=== PATIENT | female | born 1970 | race Caucasian/White ===

== ENCOUNTER → 2020-02-22 14:04 | Outpatient (CLI) | payer OTHER, SELFPAY ==
--- NOTE | 2020-02-22 14:08 | CT_ITS ---
STUDY: CT CHEST WITH CONTRAST REASON FOR EXAM: Female, 49 years old. LT SIDE CHEST/UPPER ARM PAIN, AXILLARY FULLNESS X 2 WEEKS. ATTN: LT AXILLARY LYMPHADENOPATHY. RADIATION DOSAGE (If Supplied By Facility): CTDIvol = ( 7.76 ) mGy, DLP = ( 210.35 ) mGycm TECHNIQUE: Transaxial imaging was performed following intravenous administration of IV 100mL Isovue-300. Multiplanar coronal and sagittal images were reformatted. Individualized dose optimization techniques were used for this CT. COMPARISON: None. FINDINGS: Small benign appearing bilateral axillary lymph nodes. The lungs are normal. There is no demonstrated pleural abnormality. Normal heart and pericardium. Normal mediastinum. Normal hilar regions. Normal enhanced pulmonary arteries. Normal aorta arch and descending thoracic aorta. Normal osseous structures. Large amount of residual food particles are seen within the stomach. CT/Chest WITH Contrast IMPRESSION: No acute abnormality is seen. Electronically Signed: Jim Meeks, at 15:37 EST , Service support ,
== END ==
PROVIDERS: PCP Internal Medicine; Referring Provider Internal Medicine; Visit Provider Internal Medicine
DX: R22.2 Localized swelling, mass and lump, trunk (principal)
CPT/HCPCS: 71260; Q9967

== ENCOUNTER → 2020-03-07 13:55 | Outpatient (CLI) | payer OTHER, SELFPAY ==
[2016-06-21 12:35] VITALS: BMI 21.0
--- NOTE | 2020-03-07 13:53 | BI_ITS ---
MAMMOGRAPHY - BILATERAL SCREENING REASON FOR EXAM: Female, 49 years old. Routine annual screening examination. PERTINENT HISTORY: Non-contributory. TECHNIQUE: Digital bilateral breast silvestre (3D mammographic acquisition) in the CC and MLO projections. 2-D mediolateral oblique (MLO) and craniocaudad (CC) views of both breasts were obtained. CAD: Full Field Digital Mammography with Computer Added Detection was performed. COMPARISON: None. Baseline examination. FINDINGS: Breast Composition: The breasts are heterogeneously dense, which may obscure small masses. There are no dominant masses or suspicious calcifications. No other significant abnormalities are identified. BI/SCREEN MAMM (CAD) W/SILVESTRE BILAT IMPRESSION: Negative screening mammogram. Yearly followup mammogram recommended. (A) ASSESSMENT CATEGORY: BIRADS Category 1: Negative. A letter regarding these results will be sent to the patient by the facility within 30 days. Approximately 10% of breast cancers are not detected by mammography. A normal mammogram should not delay biopsy of a clinically suspicious abnormality. [id number] Electronically Signed: Jim Meeks, at 15:02 EST , Service support ,
== END ==
PROVIDERS: PCP Internal Medicine; Referring Provider Internal Medicine; Visit Provider Internal Medicine
DX: Z12.31 Encounter for screening mammogram for malignant neoplasm of breast (principal)
CPT/HCPCS: 77063; 77067

== ENCOUNTER → 2020-07-15 16:03 | Outpatient (CLI) | payer OTHER, SELFPAY | PROVIDERS: PCP Internal Medicine; Referring Provider Otolaryngology; Visit Provider Otolaryngology | DX: Z11.59 Encounter for screening for other viral diseases (principal) | CPT/HCPCS: 87635; C9803; U0002 ==

== ENCOUNTER → 2021-08-24 | Outpatient (CLI) | payer OTHER, SELFPAY ==
--- NOTE | 2021-08-24 08:43 | MRI_ITS ---
STUDY: MRI BRAIN WITHOUT CONTRAST REASON FOR EXAM: Female, 51 years old. HEADACHE, MIGRAINE, VISION CHANGES TECHNIQUE: Standardized multiplanar fat and water weighted pulse sequences were obtained. COMPARISON: MRI of the brain dated November 22, 2016. Head CT dated June 21, 2016 FINDINGS: Normal size of the ventricles and extra-axial spaces for the patient''s age. Single tiny focus of chronic microvascular ischemic signal in the superior aspect of the left parietal lobe. Normal remaining white matter tracts of the supratentorial brain. There is no evidence for recent intracranial ischemia or other cause of cytotoxic edema on diffusion weighted imaging (DWI). Normal T2* images of the brain without demonstrated susceptibility artifact. There is no demonstrated hemosiderin stain. There are no additional white matter hyperintensities. Specifically, there are no focal areas of white matter gliosis which are occasionally associated with vasospastic migraine headaches. Normal bilateral basal ganglia. Normal thalami. There is no extra-axial fluid accumulation. Normal flow voids within the major intracranial circulation suggesting patency by spin echo criteria. Normal sella turcica, pituitary gland, infundibular stalk, optic chiasm and hypothalamus. Normal tectal plate and pineal gland. Normal midbrain, shasta and medulla. Normal cerebellum. Normal basal cisterns. Normal bilateral temporal bones. Normal bilateral internal auditory canals. No demonstrated orbital abnormality, within the constraints of a routine brain study. Normal visualized paranasal sinuses. Normal calvarium and skull base. Normal visualized soft tissue structures. Normal visualized upper cervical spine. MRI/Brain without Contrast IMPRESSION: 1. Unremarkable unenhanced MRI of the brain. Electronically Signed: Rodolfo Brunner MD at 13:01 EDT ,
== END | disposition home or self-care (01) ==
PROVIDERS: PCP Internal Medicine; Referring Provider Internal Medicine; Visit Provider Internal Medicine
DX: H53.9 Unspecified visual disturbance (principal); R51.9 Headache, unspecified
CPT/HCPCS: 70551

== ENCOUNTER 2023-12-09 10:00 | Outpatient (RCR) | payer OTHER, SELFPAY | END 2023-12-09 19:00 | disposition home or self-care (01) | LOC: PT 10:00 | PROVIDERS: PCP Internal Medicine; Referring Provider Anesthesiology; Visit Provider Anesthesiology | DX: M47.892 Other spondylosis, cervical region (principal) | CPT/HCPCS: 97035; 97162; 97530 ==

== ENCOUNTER 2025-02-22 09:30 | Outpatient (RCR) | payer OTHER, SELFPAY ==
--- NOTE | 2025-01-11 12:54 | HP.PTEVAL ---
Patient's Visit Information Visit Information Visit Information: MARGARITA RICO is a 54 year old F referred to Physical Therapy by Dr. Norberto Redmond MD with a diagnosis of clicky hip. Date of Evaluation: 01/11/25 Physical Therapist: Sea Freire, DPT, OCS, CSCS Visit Plan Frequency: 2x /Week Duration: 4-6 Weeks Plan: 2x/week for 3-6 weeks for IE HEP SLR abd and ext 3x10 R daily and frog leg R press up 10x 6x/day. treat... 1. glut med R DTR and stretch 2. R hip strength to HEP 3. Monitor adn progress PPU with R close down and monitor progress with hip pain, and weakness R hip and use ext mobs to lumbar and progressive extension if impropving. Start core streength immdiately adn work to HEP. Subjective Subjective: Sees [facility] for 2 yrs for back injections. They hep most of time. This is a different pain R SI joint and back of hip and mid leg laterally. Present long time. Insidious onset but did get kicked by cow a couple years ago, slowly worse since then. 0-9/10 worse with sitting too much. Worse on feet alot. Worse driving. Lying at night it hurts. Can keep her awake. 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 Activities at home are avoiding lifting and bending can be bothersome. Hip has always clicked even before pain. Basic ADLs: all done. Tries to ex, hard for TM walking. No other exercises. Dr. Campoverde sent to [facility] for pain mgmt until she needs fused. Pain r hip: Pain Intensity (Out of 10): 1 Pain Intensity Range: 9 Comment: worse sitting too long or walking alot. working alot. Objective Objective: Walks into PT I without antlagia, transfers I chair and bed, no pain, steps reciprocal without pain today. Lumbar AROM ext min limiteed pressure R, SB normal, flexion normal. PPU pain R and worse with R frog leg. reflexes 2/3 patella dn achilles B Sensation WNL B LE strength R hip 3 abd and ext adn L 4-. knees and ankles 4/5. Better extension after r frog leg pressup - SLR, - slump test. - FABERE adn FADDIR - SI testing today Mostly very weak R hip, extension painful in LB and glut med max tender on R side. Balance/Special Test Scores Lower Extremity Functional Score: 53 Goals Goal 1:: Sleep without waking at night due to pain Goal Time Frame: 4-6 Weeks Goal 2:: sit 20 minutes without noticing increased pain Goal Time Frame: 4-6 Weeks Goal 3:: Pain in R hip 2/10 at worst adn 80% better overall Goal Time Frame: 4-6 Weeks Goal 4:: I appropriate HEP to minimize future problems. Goal Time Frame: 4-6 Weeks Goal 5:: LEFS score 55 Goal Time Frame: 4-6 Weeks Rehabilitation Potential Physical Therapy Diagnosis: Tenderness and pain R hip limiting comfortable funciton. Rehabilitation Potential: Fair Anticipated Interventions Patient/Client Instruction: Educate patient on: Condition and Plan of Care For the Purpose of:: To decrease pain, To increase ROM, To improve nutrient delivery to tissue, To improve muscle performance and motor function, To increase tolerance to activity/condition/position, To improve ability of physical actions for home/community/work/leisure and To improve gait and locomotor functions Therapeutic Exercise to Include: Strength training, Postural training, Flexibilty training, Passive ROM and Active ROM For the Purpose of:: To decrease pain, To increase ROM, To improve nutrient delivery to tissue, To improve muscle performance and motor function, To increase tolerance to activity/condition/position and To improve gait and locomotor functions Manual Therapy Techniques to Include: Trigger point massage, Mobilization, Passive ROM and Soft tissue mobilization For the Purpose of:: To increase ROM, To improve nutrient delivery to tissue, To improve muscle performance and motor function and To increase tolerance to activity/condition/position Thermo therapy (hot pack): Yes For the Purpose of:: To improve nutrient delivery to tissue Text: Thank you for the opportunity to evaluate your patient. For Medicare and Medicare HMO plans, please review the plan of care and approve it. It will need to be FAXED BACK to us at [phone] for Medicare purposes. For Medicare only, by signing this I certify the plan of care. Please let me know if there are questions or concerns regarding this plan of care. Physician Signature: Date:
--- NOTE | 2025-02-22 10:23 | HP.PTDCSUM ---
Discharge Summary D/C summary: It has been my pleasure to treat MARGARITA RICO referred by Dr. Norberto Redmond MD, with the diagnosis of clicky hip for a total of 9 visit(s). Discharge Date: 02/22/25 Please see the following information for a summary of their discharge status. Subjective Subjective: Feeling good today and hurt yesterday without pattern. Did work Saturday adn is worse after work. Baack and R hip hurt the most. To Dr Chester in a week. HEP doing 2x/day same after doing them. Pain Bilateral Back: Pain Intensity (Out of 10): 6 r hip: Pain Intensity (Out of 10): 6 Overall Improvement % Improvement: 0 Objective Objective/Function: Extension hurt R LB, tender in R glut minor, SB and flexion are good. pt better with strength in hip and no clicky today but still hurts overall with standing at work. Hip is moving well without Pain, - VASYL, - FADDIR. Goals Goal 1:: Sleep without waking at night due to pain Goal Progress: Goal Met Goal 2:: sit 20 minutes without noticing increased pain Goal Progress: Progressing Goal 3:: Pain in R hip 2/10 at worst adn 80% better overall Goal Progress: Not Progressing Goal 4:: I appropriate HEP to minimize future problems. Goal Progress: Goal Met Goal 5:: LEFS score 55 Goal Progress: Goal Met Plan Plan: d/c to HEP, pt to see Dr. Chester in a week or so. May consider poolt herapy if no otheer good options. D/C Information Discharge Comments: To Dr. chester in a week or so. d/c sentence: If there are questions or concerns regarding this patient's physical therapy, please feel free to call me at [phone]. Thank you for the referral of this patient. Sincerely, Sea Freire, DPT, OCS, CSCS Balance/Gait/Functional tests Balance/Special Test Scores Lower Extremity Functional Score: 63 Improvement % Improvement: 0
== END 2025-02-22 19:00 | disposition home or self-care (01) ==
LOC: PT 09:30
PROVIDERS: PCP Internal Medicine; Referring Provider Anesthesiology; Visit Provider Anesthesiology
DX: R29.4 Clicking hip (principal)
CPT/HCPCS: 97110; 97140; 97161; 97164; 97530